=== PATIENT | female | born 1985 | race Caucasian/White ===

== ENCOUNTER 2020-09-22 02:03 | Emergency (ER) | payer MEDICAID ==
[~2020-09-22] VITALS: Ht 182.9 cm; Wt 125.0 kg
[2020-09-22 03:05] LABS: COLLECTION METHOD CLEAN CATCH
[2020-09-22 03:12] LABS: MUCOUS Present /lpf; PH 5 (5-8); SQUAMOUS EPITHELIAL 0-2 /hpf; URINE APPEARANCE Hazy; URINE BACTERIA Rare /hpf; URINE BILIRUBIN Negative (NEGATIVE); URINE BLOOD Negative (NEGATIVE); URINE COLOR Yellow; URINE GLUCOSE Negative (NEGATIVE); URINE KETONE Negative (NEGATIVE); URINE LEUKOCYTE ESTERASE 1+ (NEGATIVE); URINE NITRATE Positive (NEGATIVE); URINE PROTEIN(semi-quant) Negative (NEGATIVE); URINE UROBILINOGEN Negative (NEGATIVE)
[2020-09-22 03:31] LABS: TRICYCLIC ANTIDEPRESS URINE NEGATIVE
[2020-09-22 04:09] LABS: BASO % 0.3 % (0.0-2.0); EOS % 0.3 % (0-4.0); GRAN # 5.3 (1.4-6.5); GRAN % 60.1 % (42.2-75.2); HEMATOCRIT 41.7 % (37.0-47.0); HEMOGLOBIN 13.9 g/dl (12.5-16.0); LYMPH # 2.8 (1.2-3.4); LYMPH % 31.7 % (20.0-51.0); MEAN CELL VOLUME 92 fl (80.0-100.0); MEAN CORPUSCULAR HEMOGLOBIN 31 pg (27.0-31.0); MEAN CORPUSCULAR HGB CONC 33 g/dl (33.0-37.0); MEAN PLATELET VOLUME 10.9 fl (7.4-10.4); MONO # 0.7 (0.1-0.6); MONO % 7.4 % (1.7-9.3); PLATELET COUNT 192 K/mm3 (130-400); RED BLOOD COUNT 4.52 M/mm3 (4.10-5.30); REDCELL DISTRIBUTION WIDTH-CV 12.6 % (11.5-14.5)
[2020-09-22 04:23] LABS: ALANINE AMINOTRANSFERASE 21 U/L (4-34); ALKALINE PHOSPHATASE 52 U/L (50-136); ANION GAP 4 mmol/L (7-16); AST,SGOT 22 U/L (15-37); BILIRUBIN,TOTAL 0.3 mg/dL (0.0-1.0); BLOOD UREA NITROGEN 11 mg/dL (7-17); CALCIUM 9.2 mg/dL (8.4-10.2); CARBON DIOXIDE 23 mmol/L (22-30); CHLORIDE 107 mmol/L (98-107); CREATININE, serum 0.67 (0.52-1.25); GLUCOSE 93 mg/dL (74-106); POTASSIUM 3.6 mmol/L (3.4-5.0); SODIUM 134 mmol/L (137-145); TOTAL PROTEIN 6.8 gm/dL (6.4-8.2)
[2020-09-22 04:24] LABS: ACETAMINOPHEN < 10 ug/mL (10-30); ALCOHOL(ethanol),MEDICAL < 10 mg/dL; SALICYLATE < 1.0 mg/dL
[2020-09-22] MEDS ORDERED: ATARAX50 MG PO (08:27)
[2020-09-22] MEDS ORDERED: ZOLOFT 50MG50 MG PO (08:27)
[2020-09-22 11:42] VITALS: TEMP 97.9
[2020-09-22 15:00] VITALS: BP 116/68; PULSE 101
== END 2020-09-22 15:00 ==
LOC: COL.ER 02:03
PROVIDERS: Emergency Medicine
DX: F32.9 Major depressive disorder, single episode, unspecified (principal); N39.0 Urinary tract infection, site not specified; F41.0 Panic disorder [episodic paroxysmal anxiety]; F43.10 Post-traumatic stress disorder, unspecified; F60.3 Borderline personality disorder; Z20.822 Contact with and (suspected) exposure to COVID-19; Z79.899 Other long term (current) drug therapy

== ENCOUNTER 2020-12-16 11:40 | Day surgery (SDC) | payer MEDICAID ==
[~2020-12-16] VITALS: Ht 182.9 cm; Wt 125.5 kg
[~2020-12-16 11:40] MED LIST: ATARAX50 MG PO; ZOLOFT 50MG50 MG PO
[2020-12-16] MEDS ORDERED: ABILIFY5 MG PO (11:42)
[2020-12-16 11:57] VITALS: BP 136/84; PULSE 94; TEMP 97.9
--- NOTE | 2020-12-16 13:53 | NUR ---
Patient scored high risk on suicide screening questions, Patient states she has gotten help for her mental health issues and is taking her medication as prescribed.
[2020-12-16 14:15] VITALS: BP 131/79; PULSE 96; TEMP 97.3
--- NOTE | 2020-12-16 14:16 | NUR ---
1415: Patient arrived back into [facility] from PACU. Report recieved from DICE TABLE PERSON, Vivian. Vital signs stable. Patient tolerating ice chips, requesting sprite and saltines. Having some discomfort to rectum but tolerable.
[2020-12-16 14:30] VITALS: BP 129/82; PULSE 89
--- NOTE | 2020-12-16 14:30 | NUR ---
Patient is resting comfortably in her room. She has eaten/drank Sprite and crackers. She denies pain, nausea, or needs at this time.
[2020-12-16 14:45] VITALS: BP 127/74; PULSE 78
--- NOTE | 2020-12-16 14:51 | NUR ---
1445: Vital signs stable. Some discomfort but feeling okay. Tolerating food and drink well with no complaint of nausea or vomiting. Patient went to restroom, patient was able to void. 1450: IV removed. 1453: Went through discharge instructions with patient. Questions answered, verbalized understanding to education.
--- NOTE | 2020-12-16 15:00 | NUR ---
Patient has met discharge criteria. Discharge instructions are discussed. She denies any questions and verbalizes understanding. PIV is removed with catheter intact and hemostasis achieved. She changes to her clothing independently. She is escorted to the exit via wheelchair by staff and discharged to home with her sister, who drives her home in a private vehicle at 1500.
== END 2020-12-16 15:00 | disposition home or self-care (01) ==
LOC: SDCO 11:40
DX: T18.5XXA Foreign body in anus and rectum, initial encounter (principal); F41.9 Anxiety disorder, unspecified; F43.10 Post-traumatic stress disorder, unspecified; F31.9 Bipolar disorder, unspecified; Z90.49 Acquired absence of other specified parts of digestive tract; Z87.891 Personal history of nicotine dependence; Z79.899 Other long term (current) drug therapy
CPT/HCPCS: J1100; J1170; J2405; J2704; J3010; J7120

== ENCOUNTER 2023-02-21 09:34 | Emergency (ER) | payer MEDICAID ==
[~2023-02-21] VITALS: Ht 180.3 cm; Wt 113.6 kg
[2023-02-21 09:34] VITALS: TEMP 98
[~2023-02-21 09:34] MED LIST changes: +ABILIFY5 MG PO
[2023-02-21 10:08] LABS: BASO % 0.5 % (0.0-2.0); EOS % 0.1 % (0.0-4.0); GRAN % 68.1 % (42.2-75.2); HEMATOCRIT 44.7 % (37.0-47.0); HEMOGLOBIN 15.4 g/dl (12.5-16.0); LYMPH % 22.9 % (20.0-51.0); MEAN CELL VOLUME 87 fl (80.0-100.0); MEAN CORPUSCULAR HEMOGLOBIN 30 pg (27-31); MEAN CORPUSCULAR HGB CONC 35 g/dl (33.0-37.0); MEAN PLATELET VOLUME 10.4 fl (7.4-10.4); MONO # 0.7 K/mm3 (0.1-0.6); MONO % 8.2 % (1.7-9.3); PLATELET COUNT 226 K/mm3 (130-400); RED BLOOD COUNT 5.13 M/mm3 (4.10-5.30); REDCELL DISTRIBUTION WIDTH-CV 11.9 % (11.5-14.5)
[2023-02-21 10:16] LABS: BILIRUBIN,TOTAL 0.8 mg/dL (0.2-1.2); CALCIUM 9.9 mg/dL (8.4-10.2); CREATININE, serum 0.82 mg/dL (0.57-1.11); POTASSIUM 3.5 mmol/L (3.5-4.5); TOTAL PROTEIN 7.5 gm/dL (6.2-8.1)
[2023-02-21] MEDS ORDERED: PHENERGAN 25 TA25 MG PO (11:10)
[2023-02-21 12:23] VITALS: BP 100/84; PULSE 100
== END 2023-02-21 12:23 | disposition home or self-care (01) ==
LOC: COL.ER 09:34
PROVIDERS: Personal Emergency Response Attendant
DX: N83.201 Unspecified ovarian cyst, right side (principal); R11.2 Nausea with vomiting, unspecified
CPT/HCPCS: J1790; J2405; J7030; Q9967